=== PATIENT | female | born 1970 | race Caucasian/White ===

== ENCOUNTER → 2017-09-30 | Outpatient (CLI) | payer OTHER ==
--- NOTE | 2017-09-30 10:37 | XR ---
EXAMINATION TYPE: XR abdomen 1V DATE OF EXAM: 09/30/2017 COMPARISON: 01/25/2016 HISTORY: Hematuria TECHNIQUE: One view abdominal series FINDINGS: The osseous structures are intact. The bowel gas pattern is nonspecific. Ossifications in the left h emipelvis are most likely vascular. Surgical clips in the right upper quadrant noted. There is a 2 mm calcification overlying the lower pole right kidney. IMPRESSION: 1. There is a 2 mm calcification overlying the lower pole of the right kidney..
== END | disposition home or self-care (01) ==
LOC: RADXRMAIN 10:12
PROVIDERS: ATTEND Urology
DX: N28.89 Other specified disorders of kidney and ureter (principal)
CPT/HCPCS: 74018

== ENCOUNTER → 2017-10-05 | Outpatient (CLI) | payer OTHER ==
--- NOTE | 2017-10-06 11:23 | MM ---
Reason for exam: screening (asymptomatic). Last mammogram was performed 1 year and 8 months ago. History: Family history of breast cancer in mother at age 56 and breast cancer in maternal grandmother. Took hormonal contraceptives for 5 years. Physical Findings: A clinical breast exam by your physician is recommended on an annual basis and results should be correlated with mammographic findings. MG Screening Mammo w CAD Bilateral CC and MLO view(s) were taken. Prior study comparison: February 14, 2016, bilateral MG 3d diag mammo w/cad ANKIT. March 01, 2015, right breast MG work up mamm w CAD RT. There are scattered fibroglandular densities. There is no discrete abnormality. No significant changes when compared with prior studies. ASSESSMENT: Negative, BI-RAD 1 RECOMMENDATION: Routine screening mammogram of both breasts in 1 year.
== END | disposition home or self-care (01) ==
LOC: RADMAMWWP 14:55
PROVIDERS: ATTEND Family Medicine
DX: Z12.31 Encounter for screening mammogram for malignant neoplasm of breast (principal); Z80.3 Family history of malignant neoplasm of breast
CPT/HCPCS: 77067

== ENCOUNTER → 2017-10-12 | Outpatient (CLI) | payer OTHER ==
--- NOTE | 2017-10-12 15:49 | CT ---
EXAMINATION TYPE: CT abdomen pelvis wo con DATE OF EXAM: 10/12/2017 HISTORY: Right sided flank pain CT DLP: 1072.3 mGycm. Automated Exposure Control for Dose Reduction was Utilized. TECHNIQUE: CT scan of the abdomen and pelvis is performed without oral or IV contrast. COMPARISON: CT abdomen and pelvis January 25, 2016 FINDINGS: Within the limitations of a non-contrast study, the following observations are made. LUNG BASES: No significant abnormality is appreciated. LIVER/GB: Liver is diffusely low dense consistent with fatty infiltration. Cholecystectomy clips are again seen. PANCREAS: No significant abnormality is seen. SPLEEN: A few tiny splenules are redemonstrated in the anterior inferior splenic hilum. ADRENALS: No significant abnormality is seen. KIDNEYS: There is 4 mm calculus lower pole level right kidney axial image 74 identified increased in size from prior. No left-sided nephrolithiasis. No hydronephrosis or obstructing ureter calculi are s een bilaterally. No intraluminal calculus and poorly distended bladder is identified. BOWEL: There is small bowel feces sign in the terminal ileum. There is no suspicious small or large b owel dilatation. CT findings are consistent with delayed passage of ingested material 2 colonic level . GENITAL ORGANS: Anteverted uterus is seen. Both ovaries are present and not suspiciously enlarged. LYMPH NODES: No greater than 1cm abdominal or pelvic lymph nodes are appreciated. OSSEOUS STRUCTURES: There is multilevel spurring in the thoracolumbar spine. There is facet arthropat hy lower lumbar levels. OTHER: There is mild to moderate calcified atherosclerotic change of aorta extending into branch vess els. IMPRESSION: Interval enlargement of lower pole right renal calculus now measuring 4 mm on long axis. No hydronephrosis or obstructing ureter calculi clearly seen to account for patient's symptoms.
== END | disposition home or self-care (01) ==
LOC: RADCTMAIN 15:17
PROVIDERS: ATTEND Urology
DX: N20.0 Calculus of kidney (principal)
CPT/HCPCS: 74176

== ENCOUNTER 2021-07-08 03:05 | Emergency (ER) | payer OTHER ==
[2021-07-08 03:28] VITALS: TEMP 98.9
[2021-07-08 04:00] LABS: Appearance,Urine Cloudy (Clear); Bacteria,Urine Rare /hpf; Bilirubin,Urine Negative (Negative); Blood,Urine Moderate (Negative); Color,Urine Yellow; Glucose,Urine (UA) Negative (Negative); Ketones,Urine Trace (Negative); Leukocyte Esterase,Urine Negative (Negative); Mucus,Urine Rare /hpf; Nitrite,Urine Negative (Negative); Protein,Urine 1+ (Negative); RBC,Urine 100 /hpf (0-5); Specific Gravity,Urine 1.039 (1.001-1.035); Squamous Epithelial Cell,Urine 8 /hpf (0-4); WBC,Urine 2 /hpf (0-5)
[2021-07-08] MEDS ORDERED: KETOROLAC 30 MG/ML 1 ML VIAL IVP STA (06:34)
[2021-07-08] MEDS ORDERED: MORPHINE SULFATE 4 MG/ML SYRINGE IVP STA (06:34)
[2021-07-08 06:56] LABS: Basophils # (A) 0.1 k/uL (0-0.2); Basophils % (A) 1 %; Eosinophils # (A) 0.2 k/uL (0-0.7); Eosinophils % (A) 2 %; HCT 41.2 % (34.0-46.0); HGB 13.3 gm/dL (11.4-16.0); Lymphocytes # (A) 1.5 k/uL (1.0-4.8); Lymphocytes % (A) 12 %; MCH 27.5 pg (25.0-35.0); MCHC 32.2 g/dL (31.0-37.0); MCV 85.3 fL (80.0-100.0); Mean Platelet Volume 8.4; Monocytes # (A) 0.5 k/uL (0-1.0); Monocytes % (A) 4 %; Neutrophils # (A) 10.1 k/uL (1.3-7.7); Neutrophils % (A) 80 %; Platelet Count 277 k/uL (150-450); RBC 4.82 m/uL (3.80-5.40); RDW 14.5 % (11.5-15.5); WBC 12.6 k/uL (3.8-10.6)
--- NOTE | 2021-07-08 07:10 | CT ---
EXAMINATION TYPE: CT abdomen pelvis wo con DATE OF EXAM: 07/08/2021 HISTORY: Right sided flank pain CT DLP: 1382 mGycm. Automated Exposure Control for Dose Reduction was Utilized. TECHNIQUE: CT scan of the abdomen and pelvis is performed without oral or IV contrast. COMPARISON: CT October 12, 2017 FINDINGS: Within the limitations of a non-contrast study, the following observations are made. LUNG BASES: No significant abnormality is appreciated. LIVER/GB: Liver remains heterogeneously hypodense consistent with diffuse fatty infiltration. Cholecy stectomy clips redemonstrated. PANCREAS: No significant abnormality is seen. SPLEEN: No significant abnormality is seen. ADRENALS: No significant abnormality is seen. KIDNEYS: No left-sided renal calculi or hydronephrosis. No right-sided renal calculi but there is asy mmetric right renal enlargement with mild to moderate perinephric fat stranding. There is 5 mm calcul us at right UVJ axial image 128 causing moderate right-sided hydronephrosis. BOWEL: No significant abnormality is seen. GENITAL ORGANS: Anteverted uterus. Stable prominence of the lower uterine segment/cervix. LYMPH NODES: No greater than 1cm abdominal or pelvic lymph nodes are appreciated. OSSEOUS STRUCTURES: Small posterior disc herniation L5-S1 level. Mild facet arthropathy lower lumbar spine. OTHER: [id number] calcified plaque of the aorta extending into branch vessels redemonstrated. IMPRESSION: There is 5 mm calculus at right UVJ causing moderate right-sided hydronephrosis.
--- NOTE | 2021-07-08 07:19 | ED ---
Female Urogenital HPI - General Chief complaint: Urogenital Stated complaint: RT flank pain Time Seen by Provider: 07/08/21 05:57 Source: patient Mode of arrival: ambulatory Limitations: no limitations - History of Present Illness Initial comments: 50-year-old female with past medical history of diabetes, hypertension presents to the emergency room with reported right-sided flank pain. She states it started around 1 PM in the afternoon and was sudden onset. She has increased frequency of urination and hematuria. She does have a history of kidney stones however states she has not had one in several years. She denies any fevers. Admits to nausea with vomiting due to the pain. She took an Aleve around the onset of pain and has not had anything since. States that pain is 8 out of 10 without radiation. No vaginal discharge or bleeding. No bowel issues. No other alleviating, precipitating or modifying factors - Related Data Home Medications Medication Instructions Recorded Confirmed ALPRAZolam [Xanax] 0.5 mg PO BID PRN 01/25/16 01/25/16 Citalopram Hydrobromide [CeleXA] 40 mg PO DAILY 01/25/16 01/25/16 Previous Rx's Medication Instructions Recorded Ciprofloxacin HCl [Cipro] 500 mg PO Q12HR #14 tablet 01/25/16 Ketorolac [Toradol] 10 mg PO Q6HR #20 tab 01/25/16 Ondansetron Odt [Zofran ODT] 4 mg PO Q8HR PRN #20 tab 01/25/16 Acetaminophen-Codeine 300-30mg 1 tab PO Q6HR PRN #12 tablet 07/08/21 [Tylenol #3] Ketorolac [Toradol] 10 mg PO Q6HR #20 tab 07/08/21 Ondansetron Odt [Zofran Odt] 4 mg PO Q8HR PRN #15 tab 07/08/21 Tamsulosin [Flomax] 0.4 mg PO DAILY #7 cap 07/08/21 Allergies Allergy/AdvReac Type Severity Reaction Status Date / Time No Known Allergies Allergy Verified 07/08/21 03:28 Review of Systems ROS Statement: Those systems with pertinent positive or pertinent negative responses have been documented in the HPI. ROS Other: All systems not noted in ROS Statement are negative. Past Medical History Past Medical History: Diabetes Mellitus, Hypertension History of Any Multi-Drug Resistant Organisms: None Reported Past Surgical History: Appendectomy, Cholecystectomy Past Psychological History: Anxiety, Depression Smoking Status: Vaper Past Alcohol Use History: Occasional Past Drug Use History: None Reported General Exam Limitations: no limitations General appearance: alert, in no apparent distress Head exam: Present: atraumatic, normocephalic, normal inspection Eye exam: Present: normal appearance, PERRL, EOMI. Absent: scleral icterus, conjunctival injection, periorbital swelling ENT exam: Present: normal exam, mucous membranes moist Neck exam: Present: normal inspection. Absent: tenderness, meningismus, lymphadenopathy Respiratory exam: Present: normal lung sounds bilaterally. Absent: respiratory distress, wheezes, rales, rhonchi, stridor Cardiovascular Exam: Present: regular rate, normal rhythm, normal heart sounds. Absent: systolic murmur, diastolic murmur, rubs, gallop, clicks GI/Abdominal exam: Present: soft, normal bowel sounds. Absent: distended, tenderness, guarding, rebound, rigid Extremities exam: Present: normal inspection, full ROM, normal capillary refill. Absent: tenderness, pedal edema, joint swelling, calf tenderness Back exam: Present: CVA tenderness (R) Neurological exam: Present: alert, oriented X3, CN II-XII intact Psychiatric exam: Present: normal affect, normal mood Skin exam: Present: warm, dry, intact, normal color. Absent: rash Course Vital Signs 07/08/21 07/08/21 07/08/21 03:21 07:27 08:37 Temperature 98.9 F Pulse Rate 102 H 85 79 Respiratory 18 20 20 Rate Blood Pressure 143/85 154/86 136/78 O2 Sat by Pulse 95 97 99 Oximetry Medical Decision Making - Medical Decision Making Upon arrival patient was placed into room 12. A thorough history and physical exam was performed. Patient did provide a urine sample prior to being placed in a room which does demonstrate moderate blood, 100 red blood cells, 8 units epithelial cells with only rare bacteria. Patient does have a history of nephrolithiasis and therefore laboratory studies are obtained the patient is over for a noncontrasted CT for abdomen. Laboratory studies are reviewed and Epps function normal at 0.66. White count mildly elevated at 12.6. Hemoglobin 13.3. CT of the patient's abdomen and pelvis does demonstrate a right-sided ureteral calculus located at the UVJ with associated moderate right- sided hydronephrosis. Calculus measures 5 mm. Patient was given the ketorolac with only moderate improvement in her symptoms. She was then given 4 mg of morphine. The results of the studies are discussed with the patient. She feels comfortable with discharge home at this time stating that her pain is under co ntrol. Patient will be discharged and given follow-up information for the urology office. Told to call and schedule an appointment as soon as possible. Patient will be discharged home with a Zofran starter pack, Tylenol 3 starter pack. Toradol and Flomax will be sent to the patient's pharmacy. She is to take the medications as directed, increase fluid intake. Return to the hospital for any new or worsening symptoms to include fevers, inability to hold down oral medications and difficulties with urination. Patient agreed to this plan and was discharged in stable condition. - Lab Data Result diagrams: 07/08/21 06:41 07/08/21 06:41 Lab Results 07/08/21 07/08/21 07/08/21 Range/Units 03:44 06:41 06:41 WBC 12.6 H (3.8-10.6) k/uL RBC 4.82 (3.80-5.40) m/uL Hgb 13.3 (11.4-16.0) gm/dL Hct 41.2 (34.0-46.0) % MCV 85.3 (80.0-100.0) fL MCH 27.5 (25.0-35.0) pg MCHC 32.2 (31.0-37.0) g/dL RDW 14.5 (11.5-15.5) % Plt Count 277 (150-450) k/uL MPV 8.4 Neutrophils % 80 % Lymphocytes % 12 % Monocytes % 4 % Eosinophils % 2 % Basophils % 1 % Neutrophils # 10.1 H (1.3-7.7) k/uL Lymphocytes # 1.5 (1.0-4.8) k/uL Monocytes # 0.5 (0-1.0) k/uL Eosinophils # 0.2 (0-0.7) k/uL Basophils # 0.1 (0-0.2) k/uL Sodium 136 L (137-145) mmol/L Potassium 4.8 (3.5-5.1) mmol/L Chloride 101 (98-107) mmol/L Carbon Dioxide 24 (22-30) mmol/L Anion Gap 11 mmol/L BUN 16 (7-17) mg/dL Creatinine 0.66 (0.52-1.04) mg/dL Est GFR (CKD-EPI)AfAm >90 (>60 ml/min/1.73 sqM) Est GFR (CKD-EPI)NonAf >90 (>60 ml/min/1.73 sqM) Glucose 147 H (74-99) mg/dL Calcium 9.3 (8.4-10.2) mg/dL Total Bilirubin 0.5 (0.2-1.3) mg/dL AST 38 H (14-36) U/L ALT 33 (4-34) U/L Alkaline Phosphatase 101 (38-126) U/L Total Protein 8.0 (6.3-8.2) g/dL Albumin 4.3 (3.5-5.0) g/dL Urine Color Yellow Urine Appearance Cloudy H (Clear) Urine pH 6.0 (5.0-8.0) Ur Specific [place] 1.039 H (1.001-1.035) Urine Protein 1+ H (Negative) Urine Glucose (UA) Negative (Negative) Urine Ketones Trace H (Negative) Urine Blood Moderate H (Negative) Urine Nitrite Negative (Negative) Urine Bilirubin Negative (Negative) Urine Urobilinogen 2.0 (<2.0) mg/dL Ur Leukocyte Esterase Negative (Negative) Urine RBC 100 H (0-5) /hpf Urine WBC 2 (0-5) /hpf Ur Squamous Epith Cells 8 H (0-4) /hpf Urine Bacteria Rare H (None) /hpf Urine Mucus Rare H (None) /hpf Disposition Clinical Impression: Ureteral calculus, right, Hydronephrosis, Right flank pain Disposition: HOME SELF-CARE Condition: Stable Instructions (If sedation given, give patient instructions): Kidney Stones (ED) Additional Instructions: Please take the pain and nausea medications as directed. Increase fluid intake. Follow up with the primary care doctor within 2-4 days. Call and make an appointment with the urologist. Return to the emergency room for any new or worsening symptoms Prescriptions: Tamsulosin [Flomax] 0.4 mg PO DAILY #7 cap Ketorolac [Toradol] 10 mg PO Q6HR #20 tab Acetaminophen-Codeine 300-30mg [Tylenol #3] 1 tab PO Q6HR PRN #12 tablet PRN Reason: pain Ondansetron Odt [Zofran Odt] 4 mg PO Q8HR PRN #15 tab PRN Reason: Nausea Is patient prescribed a controlled substance at d/c from ED?: Yes When asked, does pt state using other controlled substances?: No If prescribed controlled substance>3 days was MAPS reviewed?: Prescribed <3 Days If opioid is for acute pain is fill amount 7 days or less?: Yes If Rx opioid, was Start Talking consent form obtained?: Yes Referrals: Monica Pepe MD [Primary Care Provider] - 1-2 days Finesse Perez MD [STAFF PHYSICIAN] - 1-2 days Time of Disposition: 08:04
[2021-07-08 07:27] LABS: African American GFR (CKD) >90 (>60 ml/min/1.73 sqM); Albumin 4.3 g/dL (3.5-5.0); Anion Gap 11 mmol/L; Carbon Dioxide 24 mmol/L (22-30); Chloride 101 mmol/L (98-107); Glucose 147 mg/dL (74-99); Non-African American GFR(CKD) >90 (>60 ml/min/1.73 sqM); Potassium 4.8 mmol/L (3.5-5.1); Sodium 136 mmol/L (137-145)
[2021-07-08 07:28] VITALS: RESP 20
[2021-07-08 07:28] LABS: ALT 33 U/L (4-34); AST 38 U/L (14-36); Alkaline Phosphatase 101 U/L (38-126); Blood Urea Nitrogen 16 mg/dL (7-17); Calcium 9.3 mg/dL (8.4-10.2); Total Bilirubin 0.5 mg/dL (0.2-1.3)
[2021-07-08] MEDS ORDERED: ACET/COD 300 MG/30 MG STARTER PACK 6 TAB BTL PO STA (08:00)
[2021-07-08] MEDS ORDERED: ONDANSETRON 4 MG ODT STARTER PACK 2 TAB BTL PO STA (08:00)
[2021-07-08] MEDS ORDERED: ONDANSETRON 4 MG/2 ML VIAL IVP STA (08:01)
[2021-07-08 08:39] VITALS: BP 136/78; PULSE 79
== END 2021-07-08 08:38 | disposition home or self-care (01) ==
LOC: EC 03:05
DX: N13.2 Hydronephrosis with renal and ureteral calculous obstruction (principal); F32.9 Major depressive disorder, single episode, unspecified; F41.9 Anxiety disorder, unspecified; F17.290 Nicotine dependence, other tobacco product, uncomplicated; Z79.899 Other long term (current) drug therapy
CPT/HCPCS: 36415; 80053; 85025; 81001; 74176; 99284; 96374; 96375 ×2; J2270; J2405; J1885; S0119